=== PATIENT | female | born 1940 | race Caucasian/White ===

== ENCOUNTER 2016-08-02 12:49 | Emergency (ER) | payer MEDICARE, BC ==
[~2016-08-02] VITALS: Ht 154.9 cm; Wt 68.0 kg
[~2016-08-02 12:49] MED LIST: PROZ20CA11 PO; RANI150 PO; STOO100T PO; UMEC1AER INH; ZOFR8TAB PO
[2016-08-02 12:51] VITALS: BP 137/68; PULSE 97; RESP 20; TEMP 98.1; O2SAT 89
[2016-08-02] MEDS ORDERED: UMEC1AER INH (13:20)
[2016-08-02] MEDS ORDERED: FLUO20CA4 PO (13:20)
[2016-08-02] MEDS ORDERED: SODIUM CHLORID 0.9% 500 ML INJ 500 ML IV ONE (13:30)
[2016-08-02] MEDS ORDERED: ONDANSETRON HCL 4 MG/2 ML VIAL IV PUSH ONE (13:30)
--- NOTE | 2016-08-02 15:19 | PD ---
HPI Chief Complaint: GI Complaint Time Seen by Provider: 13:24 Travel History International Travel<30 days: No Contact w/Intl Traveler<30days: No Traveled to known affect area: No History of Present Illness HPI Patient is a 76-year-old female comes in with nausea and vomiting. She has history of LAP-BAND surgery, and had 2 cc of fluid placed into the LAP-BAND yesterday. She says that since then she has not been able to even tolerate her secretions. When she swallows she vomits. She spoke with her surgeon who told her to come to the emergency department to have some of the fluid taken out of the band. She denies any abdominal pain. She denies any other symptoms. She says she was fine until he put the fluid into the band. [facility] Past Medical History Asthma: No Anxiety: No Depression: Yes Cancer: Yes (colon 2008) Cardiovascular Problems: No Chemotherapy: Yes (2008) COPD: Yes Diabetes: No Diverticulitis: Yes Endocrine: No Genitourinary: No Hepatitis: No Hiatal Hernia: No Hypertension: No Immune Disorder: No Musculoskeletal: No Neurologic: No Psychiatric: Yes Reproductive: No Respiratory: Yes (COPD) Radiation Therapy: No Sleep Apnea: No Thyroid Disease: No Tetanus Vaccination: < 5 Years Influenza Vaccination: Yes Past Surgical History Abdominal Surgery: Yes (DIVERTICULITIS, LAP BAND, COLON CA) Body Medical Devices: PORT FOR LAP BAND Cardiac Surgery: No Ear Surgery: Yes (DEAF LEFT EAR) Endocrine Surgery: No Eye Surgery: No Genitourinary Surgery: No Gynecologic Surgery: Yes (PROLAPSED UTERUS) Neurologic Surgery: Yes (LOW BACK DISC REMOVED) Oral Surgery: No Thoracic Surgery: No Other Surgery: Yes (colon resection, lapband, lumbar disc removal, carpal tunnel ) Social History Alcohol Use: No Tobacco Use: No Substance Use: No Allergies-Medications (Allergen,Severity, Reaction): Coded Allergies: Sulfa (Unverified Allergy, Severe, HIVES, 08/02/16) Reported Meds & Prescriptions Reported Meds & Active Scripts Active Reported Anoro Ellipta Inh (Umeclidinium/Vilanterol) 62.5-25 Mcg/Act Aero 1 Puff INH DAILY Fluoxetine (Fluoxetine HCl) 20 Mg Cap 20 Mg PO DAILY Review of Systems General / Constitutional: No: Fever, Chills HENT: No: Headaches, Lightheadedness Cardiovascular: No: Chest Pain or Discomfort Respiratory: No: Shortness of Breath Gastrointestinal: Positive: Nausea, Vomiting, No: Abdominal Pain Musculoskeletal: No: Myalgias Skin: No Rash, No Change in Pigmentation Neurologic: No: Weakness, Dizziness Physical Exam Narrative GENERAL: Awake and alert in no acute distress. SKIN: Warm and dry. HEAD: Atraumatic. Normocephalic. EYES: Pupils equal and round. No scleral icterus. ENT: No nasal bleeding or discharge. Mucous membranes pink and moist. NECK: Trachea midline. No JVD. CARDIOVASCULAR: Regular rate and rhythm. No murmur appreciated. RESPIRATORY: No accessory muscle use. Clear to auscultation. Breath sounds equal bilaterally. GASTROINTESTINAL: Abdomen soft, non-tender, nondistended. Data Data Last Documented VS Vital Signs Date Time Temp Pulse Resp B/P Pulse Ox O2 Delivery O2 Flow Rate FiO2 08/02/16 13:20 18 08/02/16 12:51 98.1 97 137/68 89 Room Air Orders Sodium Chlorid 0.9% 500 Ml Inj (Ns 500 M (08/02/16 13:30) Ondansetron Inj (Zofran Inj) (08/02/16 13:30) MDM Medical Decision Making Medical Screen Exam Complete: Yes Emergency Medical Condition: Yes Medical Record Reviewed: Yes Differential Diagnosis Gastroenteritis versus LAP-BAND malfunction versus dehydration Narrative Course Patient is a 76-year-old female comes in unable to tolerate any by mouth intake. Exam shows abdomen is soft and nontender. I spoke with Dr. Miles who will come see the patient. Dr. Miles came and removed 2 CC of fluid from the band. She was able to drink afterwards without any issue. She is feeling better and would like to go home. She will follow up Thursday with her surgeon. Advised to return to the ED as needed for any worsening symptoms. Diagnosis Primary Impression: Vomiting Qualified Code: R11.2 - Non-intractable vomiting with nausea, unspecified vomiting type Patient Instructions: Acute Nausea and Vomiting (ED), General Instructions Additional Instructions: Drink plenty of fluids. Follow up with your surgeon on Thursday. Return to the ED as needed for any worsening symptoms. Disposition: DISCHARGE HOME Condition: Stable Portia Sen MD Aug 02, 2016 15:19
== END 2016-08-02 15:38 | disposition home or self-care (01) ==
LOC: NEPA 12:49
DX: R11.2 Nausea with vomiting, unspecified (principal); Z98.890 Other specified postprocedural states; Z86.59 Personal history of other mental and behavioral disorders; Z85.038 Personal history of other malignant neoplasm of large intestine; Z87.09 Personal history of other diseases of the respiratory system; Z87.19 Personal history of other diseases of the digestive system
CPT/HCPCS: 99283